=== PATIENT | female | born 1975 | race Hispanic/Latino ===

== ENCOUNTER 2019-02-03 08:37 | Emergency (ER) | payer SELFPAY ==
[2019-02-03] MEDS ORDERED: IBUPROFEN 400 MG TAB ONE (08:58)
[2019-02-03] MEDS ORDERED: ACETAMINOPHEN 500 MG TAB ONE (08:58)
--- NOTE | 2019-02-03 10:28 | RAD REPORT ---
EXAM DESCRIPTION: RAD - Femur Left - 02/03/2019 9:30 am CLINICAL HISTORY: Left leg pain FINDINGS: No fracture is seen
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
== END 2019-02-03 10:47 | disposition home or self-care (01) ==
LOC: ER 08:37
DX: S60.222A Contusion of left hand, initial encounter (principal); M79.605 Pain in left leg; V49.40XA Driver injured in collision with unspecified motor vehicles in traffic accident, initial encounter
CPT/HCPCS: 72170; 99284